=== PATIENT | male | born 1985 | race Caucasian/White ===

== ENCOUNTER 2018-03-03 00:50 | Emergency (ER) | payer SELFPAY ==
[2018-03-03] MEDS ORDERED: HYDROCODONE/APAP 5/325 MG TAB ONE ×2 (01:18→02:26)
--- NOTE | 2018-03-03 02:38 | EDPHYS ---
Physician Documentation [facility] Name: Andreas Patrick Age: 32 yrs Sex: Male : 1985 Arrival Date: 03/03/2018 Time: 00:51 Bed 5 Private MD: ED Physician Basilio Sun HPI: 03/03 02:00 This 32 yrs old Male presents to ER via Ambulatory with complaints of Left pm1 arm Injury. 02:00 The patient or guardian complains of injury. The complaints affect the left forearm. pm1 Context: The problem was sustained at home, resulted from a fall, the patient slipped. Onset: The symptoms/episode began/occurred just prior to arrival. Treatment prior to arrival includes: no previous treatment. Modifying factors: The symptoms are alleviated by nothing. the symptoms are aggravated by nothing. The patient has experienced similar episodes in the past, broke his left arm twice in the past. The patient has not recently seen a physician. [place] and lost his footing. Fell off the porch with his left arms extended out. No head injury, headache, neck pain, or LOC. Historical: - Allergies: 01:08 No Known Allergies; fc - Home Meds: 01:08 None [Active]; fc - PMHx: 01:08 None; fc - PSHx: 01:08 None; fc - Immunization history:: Last tetanus immunization: up to date Flu vaccine is not up to date. - Social history:: Smoking status: Patient uses tobacco products, smokes two packs cigarettes per day. Patient uses alcohol, on a daily basis. Patient/guardian denies using street drugs. - Ebola Screening: : Patient negative for fever greater than or equal to 101.5 degrees Fahrenheit, and additional compatible Ebola Virus Disease symptoms Patient denies exposure to infectious person Patient denies travel to an Ebola-affected area in the 21 days before illness onset. ROS: 02:00 Constitutional: Negative for fever, chills, and weight loss, Eyes: Negative for injury, pm1 pain, redness, and discharge, ENT: Negative for injury, pain, and discharge, Neck: Negative for injury, pain, and swelling, Cardiovascular: Negative for chest pain, palpitations, and edema, Respiratory: Negative for shortness of breath, cough, wheezing, and pleuritic chest pain, Abdomen/GI: Negative for abdominal pain, nausea, vomiting, diarrhea, and constipation, Back: Negative for injury and pain, : Negative for injury, bleeding, discharge, and swelling. 02:00 Skin: Negative for injury, rash, and discoloration. 02:00 MS/extremity: Positive for deformity, pain, swelling, of the left forearm. 02:00 Neuro: Positive for tingling, of the pinky finger left. Exam: 02:15 Constitutional: This is a well developed, well nourished patient who is awake, alert, pm1 and in no acute distress. Head/Face: Normocephalic, atraumatic. Eyes: Pupils equal round and reactive to light, extra-ocular motions intact. Lids and lashes normal. Conjunctiva and sclera are non-icteric and not injected. Cornea within normal limits. Periorbital areas with no swelling, redness, or edema. ENT: Nares patent. No nasal discharge, no septal abnormalities noted. Tympanic membranes are normal and external auditory canals are clear. Oropharynx with no redness, swelling, or masses, exudates, or evidence of obstruction, uvula midline. Mucous membranes moist. Neck: Trachea midline, no thyromegaly or masses palpated, and no cervical lymphadenopathy. Supple, full range of motion without nuchal rigidity, or vertebral point tenderness. No Meningismus. Chest/axilla: Normal chest wall appearance and motion. Nontender with no deformity. No lesions are appreciated. Cardiovascular: Regular rate and rhythm with a normal S1 and S2. No gallops, murmurs, or rubs. Normal PMI, no JVD. No pulse deficits. Respiratory: Lungs have equal breath sounds bilaterally, clear to auscultation and percussion. No rales, rhonchi or wheezes noted. No increased work of breathing, no retractions or nasal flaring. Abdomen/GI: Soft, non-tender, with normal bowel sounds. No distension or tympany. No guarding or rebound. No evidence of tenderness throughout. Back: No spinal tenderness. No costovertebral tenderness. Full range of motion. Skin: Warm, dry with normal turgor. Normal color with no rashes, no lesions, and no evidence of cellulitis. 02:15 Musculoskeletal/extremity: Extremities: grossly normal except: noted in the mid left forearm: pain, tenderness, Pulses: noted to be 2+ in the left radial artery, Perfusion: the extremity is normally perfused throughout, pink, warm, with brisk capillary refill, left ulnar artery pulse auscultated with Doppler and marked on left wrist. Patient able to move all of his left fingers and feels touch to each finger. Vital Signs: 01:08 BP 135 / 94; Pulse 111; Resp 18; Temp 98.8(O); Pulse Ox 100% on R/A; Weight 68.04 kg fc (R); Height 5 ft. 7 in. (170.18 cm) (R); Pain 10; 03:21 BP 154 / 93; Pulse 93; Resp 18; Temp 98.2(O); Pulse Ox 98% on R/A; Pain 7/10; fc 01:08 Body Mass Index 23.49 (68.04 kg, 170.18 cm) Procedures: 02:34 Splinting: Splint applied to left forearm using Orthoglass splint, applied by myself. pm1 tech. Examined by me, post splint application: neurovascular intact, 2+ distal pulses palpable, brisk capillary refill noted, Patient tolerated well. MDM: 01:00 Patient medically screened. pm1 02:33 ED course: Consultation with Dr. Sun, as long as compartment syndrome not present, pm1 patient can be discharged home with splint and follow up with orthopedics. Neurovascular status intact to left hand. Patient able to move all fingers on left hand. 02:34 Data reviewed: vital signs. Data interpreted: Pulse oximetry: on room air is 100 %. pm1 Interpretation: normal. 02:35 Counseling: I had a detailed discussion with the patient and/or guardian regarding: the pm1 historical points, exam findings, and any diagnostic results supporting the discharge/admit diagnosis, radiology results, the need for outpatient follow up, for definitive care, a orthopedic surgeon, to return to the emergency department if symptoms worsen or persist or if there are any questions or concerns that arise at home. 03/03 01:38 Order name: Forearm Left EDMS 03/03 01:51 Order name: Splint - Sugar Tong - Forearm; Complete Time: 03:15 pm1 03/03 02:37 Order name: Sling; Complete Time: 03:15 pm1 Administered Medications: 01:19 Drug: [place] 5 mg-325 mg 1 tabs {Note: administered by Aranza CLAROS.} Route: PO; jd3 02:15 Follow up: Response: No adverse reaction; Pain is unchanged, physician notified aa1 02:20 Drug: [place] 5 mg-325 mg 1 tabs Route: PO; aa1 03:20 Follow up: Response: No adverse reaction; Pain is decreased Disposition: 03/03/18 02:37 Discharged to Home. Impression: Other fracture of shaft of radius, left arm, Other fracture of shaft of left ulna. - Condition is Stable. - Discharge Instructions: Cast or Splint Care, Adult, Forearm Fracture, How to Use a Sling. - Prescriptions for Tylenol- Codeine #3 300-30 mg Oral Tablet - take 2 tablet by ORAL route every 6 hours As needed; 30 tablet. - Medication Reconciliation Form, Thank You Letter, Antibiotic Education, Prescription Opioid Use form. - Follow up: Emergency Department; When: As needed; Reason: Worsening of condition. Follow up: Private Physician; When: 2 - 3 days; Reason: Recheck today's complaints, Continuance of care, Re-evaluation by your physician. - Problem is new. - Symptoms have improved. Addendum: 03/04/2018 18:53 Co-signature as Attending Physician, Basilio Sun MD. g s Signatures: Dispatcher [employer] [facility] Aranza Davis RN RN aa1 Astrid Hernandes RN RN Saad Meraz, BENEFIT AUTHORIZER BENEFIT AUTHORIZER pm1 Basilio Sun MD MD Nick Metz RN RN jd3 Corrections: (The following items were deleted from the chart) 03/03 03:25 03:18 Forearm Left+RAD.RAD.BRZ ordered. [facility] EDMS 03:33 02:37 03/03/2018 02:37 Discharged to Home. Impression: Other fracture of shaft of fc radius, left arm; Other fracture of shaft of left ulna. Condition is Stable. Forms are Medication Reconciliation Form, Thank You Letter, Antibiotic Education, Prescription Opioid Use. Follow up: Emergency Department; When: As needed; Reason: Worsening of condition. Follow up: Private Physician; When: 2 - 3 days; Reason: Recheck today's complaints, Continuance of care, Re-evaluation by your physician. Problem is new. Symptoms have improved. pm1
--- NOTE | 2018-03-03 02:38 | ER ---
Nurse's Notes [facility] Name: Andreas Patrick Age: 32 yrs Sex: Male : 1985 Arrival Date: 03/03/2018 Time: 00:51 Bed 5 Private MD: Diagnosis: Other fracture of shaft of radius, left arm;Other fracture of shaft of left ulna Presentation: 03/03 01:06 Presenting complaint: Patient states: that he fell off the porch with his left arm fc stretched out. Now having severe left forearm pain and decreased ROM to left wrist and fingers. Transition of care: patient was not received from another setting of care. Onset of symptoms was March 03, 2018 at 00:15. Risk Assessment: Do you want to hurt yourself or someone else? Patient reports no desire to harm self or others. Initial Sepsis Screen: Does the patient meet any 2 criteria? HR > 90 bpm. Yes Does the patient have a suspected source of infection? No. Patient's initial sepsis screen is negative. Care prior to arrival: None. 01:06 Method Of Arrival: Ambulatory 01:06 Acuity: [place] 4 fc Triage Assessment: 03:25 Injury Description: fell off porch. fc Historical: - Allergies: 01:08 No Known Allergies; fc - Home Meds: 01:08 None [Active]; fc - PMHx: 01:08 None; fc - PSHx: 01:08 None; fc - Immunization history:: Last tetanus immunization: up to date Flu vaccine is not up to date. - Social history:: Smoking status: Patient uses tobacco products, smokes two packs cigarettes per day. Patient uses alcohol, on a daily basis. Patient/guardian denies using street drugs. - Ebola Screening: : Patient negative for fever greater than or equal to 101.5 degrees Fahrenheit, and additional compatible Ebola Virus Disease symptoms Patient denies exposure to infectious person Patient denies travel to an Ebola-affected area in the 21 days before illness onset. Screenin:07 Abuse screen: Denies threats or abuse. Denies injuries from another. Nutritional aa1 screening: No deficits noted. Tuberculosis screening: No symptoms or risk factors identified. Fall Risk None identified. Assessment: 01:02 General: Appears in no apparent distress. uncomfortable, Behavior is calm, cooperative, aa1 appropriate for age, Smells of alcohol. Pain: Complains of pain in dorsal aspect of left forearm and palmar aspect of left forearm Pain currently is 10 out of 10 on a pain scale. Neuro: Level of Consciousness is awake, alert, obeys commands, Oriented to person, place, time, situation. Respiratory: Airway is patent Respiratory effort is even, unlabored, Respiratory pattern is regular, symmetrical. GI: No signs and/or symptoms were reported involving the gastrointestinal system. : No signs and/or symptoms were reported regarding the genitourinary system. EENT: No signs and/or symptoms were reported regarding the EENT system. Derm: Skin is intact, is healthy with good turgor, Skin is pink, warm \T\ dry. Musculoskeletal: Circulation, motion, and sensation intact. Capillary refill < 3 seconds, Range of motion: limited in PIP of left little finger, MCP of left little finger, PIP of left ring finger, MCP of left ring finger, PIP of left middle finger and MCP of left middle finger Swelling present in palmar aspect of left forearm. Vital Signs: 01:08 BP 135 / 94; Pulse 111; Resp 18; Temp 98.8(O); Pulse Ox 100% on R/A; Weight 68.04 kg fc (R); Height 5 ft. 7 in. (170.18 cm) (R); Pain 10/10; 03:21 BP 154 / 93; Pulse 93; Resp 18; Temp 98.2(O); Pulse Ox 98% on R/A; Pain 7/10; fc 01:08 Body Mass Index 23.49 (68.04 kg, 170.18 cm) ED Course: 00:51 Patient arrived in ED. am2 01:00 Saad Meraz NP is PHCP. pm1 01:00 Basilio Sun MD is Attending Physician. pm1 01:02 Aranza Davis RN is Primary Nurse. aa1 01:02 Patient has correct armband on for positive identification. Bed in low position. Call aa1 light in reach. Pulse ox on. NIBP on. 01:08 Triage completed. fc 01:09 Arm band placed on Patient placed in an exam room, on a stretcher. fc 01:41 Forearm Left In Process Unspecified. EDMS 01:42 X-ray completed. Portable x-ray completed in exam room. Patient tolerated procedure mh1 well. 02:45 Orthoglass splint: Sugar tong splint applied on left arm. by Saad AGRICULTURAL EDUCATION INSTRUCTOR Sling applied fc to left arm. 03:22 No provider procedures requiring assistance completed. Patient did not have IV access fc during this emergency room visit. Administered Medications: 01:19 Drug: [place] 5 mg-325 mg 1 tabs {Note: administered by Aranza CLAROS.} Route: PO; jd3 02:15 Follow up: Response: No adverse reaction; Pain is unchanged, physician notified aa1 02:20 Drug: [place] 5 mg-325 mg 1 tabs Route: PO; aa1 03:20 Follow up: Response: No adverse reaction; Pain is decreased fc Outcome: 02:37 Discharge ordered by MD. pm1 03:23 Discharged to home via wheelchair, with family. fc 03:23 Condition: good 03:23 Discharge instructions given to patient, Instructed on discharge instructions, follow up and referral plans. no drinking with medication, no driving heavy equipment, medication usage, Demonstrated understanding of instructions, follow-up care, medications, splint care, Prescriptions given X 1. 03:33 Patient left the ED. fc Signatures: Dispatcher [employer] EDMS Aranza Davis, RN RN aa1 Laurel Spencer 1 Astrid Hernandes RN RN Saad Meraz NP AGRICULTURAL EDUCATION INSTRUCTOR pm1 Zakia Phan 2 Nick Metz RN RN jd3
--- NOTE | 2018-03-03 10:35 | RAD REPORT ---
EXAM DESCRIPTION: RAD - Forearm Left - 03/03/2018 1:41 am CLINICAL HISTORY: R/O FX, FALL Pain and swelling COMPARISON: No comparisons FINDINGS: Fracture of the midshaft of the radius and ulna is noted with mild overriding. Prominent s oft tissue swelling is seen in the region.
== END 2018-03-03 03:33 | disposition home or self-care (01) ==
LOC: ER 00:50
PROC: 2W3DX1Z Immobilization of Left Lower Arm using Splint (ICD-10-PCS; principal; 2018-03-03)
DX: S52.392A Other fracture of shaft of radius, left arm, initial encounter for closed fracture (principal); S52.292A Other fracture of shaft of left ulna, initial encounter for closed fracture; W01.0XXA Fall on same level from slipping, tripping and stumbling without subsequent striking against object, initial encounter; Y92.008 Other place in unspecified non-institutional (private) residence as the place of occurrence of the external cause; Y93.89 Activity, other specified; F17.210 Nicotine dependence, cigarettes, uncomplicated
CPT/HCPCS: 99284